=== PATIENT | male | born 1985 ===

== ENCOUNTER 2018-05-16 13:13 | Outpatient (CLI) | payer OTHER ==
--- NOTE | 2018-05-16 16:04 | ULT ---
TESTICULAR ULTRASOUND: HISTORY: Left testicular pain, which has resolved. TECHNIQUE: Multiplanar cadena-scale and color Doppler images were obtained in a bilateral testicular/scrotal ultra sound. Spectral analysis of the Doppler waveforms of the testicles was performed. FINDINGS: The testicles are normal in echogenicity, without focal lesions, and demonstrate normal symmetric int ernal flow. The epididymides are normal in appearance and demonstrate normal flow. No cyst is seen in the epididymis. Prominent vasculature is seen on both sides of the scrotum, which does not appear to increase with Valsalva. IMPRESSION: No significant abnormality. POS: CHUN
== END 2018-05-16 13:14 | disposition home or self-care (01) ==
LOC: BICULT 13:13
PROVIDERS: ATTEND Family Medicine
DX: N50.9 Disorder of male genital organs, unspecified (principal)
CPT/HCPCS: 76870; 93976